=== PATIENT | female | born 1980 | race Caucasian/White ===

== ENCOUNTER 2020-12-28 20:29 | Emergency (ER) | payer OTHER ==
[~2020-12-28] VITALS: Ht 162.6 cm; Wt 60.7 kg
[2020-12-28 20:30] VITALS: BP 131/86
[2020-12-28] MEDS ORDERED: BREO1INH PO (20:47)
[2020-12-29] MEDS ORDERED: IBUPROFEN 800 MG TAB PO ONE (02:55)
--- NOTE | 2020-12-29 03:59 | REPVR ---
PROCEDURE INFORMATION: Exam: US Duplex Right Lower Extremity Veins, Limited Exam date and time: 12/29/2020 2:43 AM Age: 40 years old Clinical indication: Other: Redness to lateral thigh; Additional info: R/O dvt rle TECHNIQUE: Imaging protocol: Real-time Duplex ultrasound of the Right Lower Extremity with 2-D haines scale, color Doppler flow and spectral waveform analysis with image documentation. Limited exam was focused on the right lower extremity veins. COMPARISON: No relevant prior studies available. FINDINGS: Right deep veins: Unremarkable. The common femoral, femoral, proximal profunda femoral and popliteal veins are patent without thrombus. Normal Doppler waveforms. Normal compressibility and/or augmentation response. Right superficial veins: Unremarkable. Saphenofemoral junction is patent without thrombus. Soft tissues: Unremarkable. Scanning in the right lateral thigh at the area of discoloration reveals no distinct sonographic abnormality. IMPRESSION: No evidence of deep vein thrombosis. Electronically signed by: Shi Berman On 12/29/2020 03:59:04 AM
[2020-12-29] MEDS ORDERED: IBUP80TA PO (04:13)
== END 2020-12-29 04:33 | disposition home or self-care (01) ==
LOC: M ED 20:29
DX: I80.02 Phlebitis and thrombophlebitis of superficial vessels of left lower extremity (principal); J45.909 Unspecified asthma, uncomplicated; I25.10 Atherosclerotic heart disease of native coronary artery without angina pectoris; I48.0 Paroxysmal atrial fibrillation